=== PATIENT | female | born 1980 | race Two or more races ===

== ENCOUNTER 2019-01-22 22:44 | Emergency (ER) | payer MEDICAID, SELFPAY ==
[~2019-01-22] VITALS: Ht 152.4 cm; Wt 87.0 kg
[2019-01-22 22:48] VITALS: BP 121/83
--- NOTE | 2019-01-22 23:02 | NUR ---
Pt resting on gurney, wearing gown, on her right side for comfort.
--- NOTE | 2019-01-22 23:10 | NUR ---
Dr. Shafer at bedside to evaluate pt.
[2019-01-22] MEDS ORDERED: LIDOCAINE-MPF 1%, 5ML ONE (23:16)
--- NOTE | 2019-01-22 23:22 | NUR ---
Dr. Shafer at bedside for numbing. I&D set up at bedside.
[2019-01-22] MEDS ORDERED: IBUPROFEN 600 MG TABLET ONE (23:28)
[2019-01-22] MEDS ORDERED: IBUPROFEN 600 MG TABLET PO ONE (23:30)
[2019-01-22] MEDS ORDERED: LIDOCAINE-MPF 1%, 5ML INFIL ONE (23:30)
--- NOTE | 2019-01-22 23:39 | NUR ---
Dr. Shafer at bedside for procedure.
== END 2019-01-23 00:25 | disposition home or self-care (01) ==
LOC: ED 23:59
DX: L02.31 Cutaneous abscess of buttock (principal)
CPT/HCPCS: 10060; 99284

== ENCOUNTER 2019-01-25 17:03 | Emergency (ER) | payer SELFPAY ==
[~2019-01-25] VITALS: Ht 152.4 cm; Wt 87.9 kg
[2019-01-25 17:04] VITALS: BP 116/60
--- NOTE | 2019-01-25 17:52 | NUR ---
Patient/Caregiver given discharge instructions and they have confirmed that they understand the instructions. Patient ambulatory with steady gait.
== END 2019-01-25 17:53 | disposition home or self-care (01) ==
LOC: ED 17:28
DX: L02.31 Cutaneous abscess of buttock (principal)
CPT/HCPCS: 99283

== ENCOUNTER 2019-01-27 21:47 | Emergency (ER) | payer SELFPAY ==
[~2019-01-27] VITALS: Ht 152.4 cm; Wt 89.1 kg
[2019-01-27 21:50] VITALS: BP 127/49
== END 2019-01-27 22:28 | disposition home or self-care (01) ==
LOC: ED 22:03
DX: L02.31 Cutaneous abscess of buttock (principal)
CPT/HCPCS: 99281